=== PATIENT | female | born 1955 | race Two or more races ===

== ENCOUNTER 2019-11-16 17:57 | Observation (INO) | payer BC ==
[~2019-11-16] VITALS: Ht 165.1 cm; Wt 50.9 kg
--- NOTE | 2019-11-16 18:13 | NUR ---
PT BIB EMS FROM [facility] FOR CHEST PAIN START THIS AM. PT DENIES, N/V/D, NO SOB. [address]SA AT [facility], 3 NITRO SPRAY BY EMS, PAIN RELIEVED FROM 06/23 TO 02/21. EDUCATION SPEC APPLIED, PT NOT IN ANY DISTRESS.
[2019-11-16 18:32] LABS: BASOPHILS # (AUTO) 0.04 x10^3/uL (0-0.1); BASOPHILS % (AUTO) 1 % (0-1); EOSINOPHILS # (AUTO) 0.05 x10^3/uL (0-0.4); EOSINOPHILS % (AUTO) 2 % (1-7); LYMPHOCYTES # (AUTO) 0.86 x10^3/uL (1-3.4); LYMPHOCYTES % (AUTO) 28 % (22-44); MD NO; MEAN CORPUSCULAR HEMOGLOBIN 30.3 pg (27.0-34.8); MEAN CORPUSCULAR HGB CONC 33.9 g/dL (32.4-35.8); MEAN CORPUSCULAR VOLUME 89.5 fL (80-100); MEAN PLATELET VOLUME 7.9 fL (7.4-10.4); MONOCYTES # (AUTO) 0.33 x10^3/uL (0.2-0.8); MONOCYTES % (AUTO) 11 % (2-9); NEUTROPHILS # (AUTO) 1.81 x10^3/uL (1.8-6.8); NEUTROPHILS % (AUTO) 59 % (42-75); PLATELET COUNT 257 x10^3/uL (130-400); RED BLOOD COUNT 4.05 x10^6/uL (3.82-5.3); RED CELL DISTRIBUTION WIDTH 12.9 % (9.6-15.2)
[2019-11-16 18:42] LABS: ALBUMIN 4.1 g/dL (3.4-5.0); ANION GAP 6 mmol/L (5-15); CALCIUM 8.9 mg/dL (8.5-10.1); CHLORIDE 101 mmol/L (98-107); CREATININE 0.53 mg/dL (0.55-1.02)
[2019-11-16 18:46] LABS: TROPONIN I < 0.015 ng/mL (0.000-0.045)
[2019-11-16] MEDS ORDERED: CLON2TAB16 PO (19:34)
--- NOTE | 2019-11-16 19:35 | NUR ---
REPORT TO KIESHA SHELDON AT BEDSIDE
[2019-11-16 20:17] VITALS: BP 119/73
[2019-11-16] MEDS ORDERED: ONDANSETRON ODT 4 MG PO PRN (21:00)
[2019-11-16] MEDS ORDERED: DOCUSATE 100 MG CAPSULE PO PRN (21:00)
[2019-11-16] MEDS ORDERED: PLEASE ENTER ALLERGIES MC SCH (21:00)
[2019-11-16] MEDS ORDERED: LIDODERM 5% PATCH TD PRN (21:00)
[2019-11-16] MEDS ORDERED: ACETAMINOPHEN 325 MG TABLET PO PRN (21:00)
[2019-11-16] MEDS: HEPARIN 5,000 UNITS/ML, 1ML SQ SCH (22:00)
[2019-11-17 00:41] VITALS: BP 123/70
[2019-11-17 01:04] LABS: TROPONIN I < 0.015 ng/mL (0.000-0.045)
[2019-11-17 04:59] LABS: MEAN CORPUSCULAR HEMOGLOBIN 30.3 pg (27.0-34.8); MEAN CORPUSCULAR HGB CONC 33.8 g/dL (32.4-35.8); MEAN CORPUSCULAR VOLUME 89.8 fL (80-100); MEAN PLATELET VOLUME 8.6 fL (7.4-10.4); PLATELET COUNT 230 x10^3/uL (130-400); RED BLOOD COUNT 3.86 x10^6/uL (3.82-5.3); RED CELL DISTRIBUTION WIDTH 13.5 % (9.6-15.2)
[2019-11-17 05:03] LABS: ANION GAP 7 mmol/L (5-15); CALCIUM 8.8 mg/dL (8.5-10.1); CHLORIDE 105 mmol/L (98-107); CHOLESTEROL, TOTAL 178 mg/dL (140-239); CREATININE 0.58 mg/dL (0.55-1.02); TRIGLYCERIDES 50 mg/dL (50-200); VLDL CHOLESTEROL 10 mg/dL (0-25)
[2019-11-17 05:04] LABS: CHOL/HDL RATIO 2.1; HDL CHOL % 48 % (28-40); HDL CHOLESTEROL (DIRECT) 86 mg/dL (40-60); LDL CHOLESTEROL,CALCULATED 82 mg/dL (54-169)
[2019-11-17 05:19] LABS: BASOPHILS # (AUTO) 0.04 x10^3/uL (0-0.1); BASOPHILS % (AUTO) 1 % (0-1); EOSINOPHILS % (AUTO) 3 % (1-7); LYMPHOCYTES # (AUTO) 1.14 x10^3/uL (1-3.4); LYMPHOCYTES % (AUTO) 37 % (22-44); MD NO; MONOCYTES # (AUTO) 0.31 x10^3/uL (0.2-0.8); MONOCYTES % (AUTO) 10 % (2-9); NEUTROPHILS # (AUTO) 1.46 x10^3/uL (1.8-6.8); NEUTROPHILS % (AUTO) 48 % (42-75)
[2019-11-17] MEDS: HEPARIN 5,000 UNITS/ML, 1ML SQ SCH ×2 (06:37→13:26)
[2019-11-17 08:40] VITALS: BP 132/77
[2019-11-17] MEDS ORDERED: REGADENOSON 0.4 MG/5 ML SYRINGE ONE (09:16)
[2019-11-17] MEDS ORDERED: CEPH250T PO (13:31)
[2019-11-17 13:37] VITALS: BP 121/73
[2019-11-17] MEDS ORDERED: SIMV20TA PO (14:21)
== END 2019-11-17 14:20 | disposition home or self-care (01) ==
LOC: ED 19:10 → INTOOBSV 19:15 → EDIP 19:15 → 5SO 19:57 → DCLOUNGE 11-17 14:11
PROVIDERS: ADMIT Family Medicine; ATTEND Internal Medicine
DX: R07.89 Other chest pain (principal); E78.5 Hyperlipidemia, unspecified; F41.9 Anxiety disorder, unspecified; D72.819 Decreased white blood cell count, unspecified
CPT/HCPCS: 36415; 78452; 80048; 80061; 82040; 83735; 84484; 85025; 93005; 93017; 96372; 99284; A9502; C9898; G0378; J1644; J2785